=== PATIENT | female | born 1965 | race Caucasian/White ===

== ENCOUNTER 2016-12-06 14:11 | Emergency (ER) | payer BC ==
[~2016-12-06] VITALS: Ht 160 cm; Wt 92.5 kg
[~2016-12-06 14:11] MED LIST: AMOX875 PO
[2016-12-06 14:15] VITALS: BP 150/95; PULSE 105; RESP 16; TEMP 98.6; O2SAT 98
--- NOTE | 2016-12-06 15:03 | RADRPT ---
EXAM DATE/TIME: 12/06/2016 14:32 [facility] COMPARISON: No previous studies available for comparison. INDICATIONS : Short of breath and weakness MEDICAL HISTORY : Hypertension. SURGICAL HISTORY : None. ENCOUNTER: Initial ACUITY: 1 week PAIN SCORE: 3/10 LOCATION: Bilateral chest FINDINGS: PA and lateral views of the chest demonstrate the lungs to be symmetrically aerated without evidence of mass, infiltrate or effusion. The cardiomediastinal contours are unremarkable. Osseous structure s are intact. CONCLUSION: Normal examination. Power Forrest Jr., MD on December 06, 2016 at 15:01 Board Certified Radiologist. This report was verified electronically.
--- NOTE | 2016-12-06 15:10 | PD ---
HPI Chief Complaint: Cold / Flu Symptoms Time Seen by Provider: 14:25 Travel History International Travel<30 days: No Contact w/Intl Traveler<30days: No Traveled to known affect area: No History of Present Illness HPI 51-year-old female presents to the emergency department for evaluation of cough , body aches, sore throat nasal congestion 3 days. She denies fever or chills. Symptoms severity mild. No aggravating or alleviating factors. She denies chest pain or shortness of breath. PFSH Past Medical History Medical History: Denies Significant Hx Diminished Hearing: No Hypertension: Yes (ON NO MEDS) Immunizations Current: Yes Tetanus Vaccination: > 5 Years Influenza Vaccination: No ?: Not : 4 Para: 3 Past Surgical History Section: Yes (X3) Gynecologic Surgery: Yes (3 C-SECTIONS) Social History Alcohol Use: No Tobacco Use: No Substance Use: No Allergies-Medications (Allergen,Severity, Reaction): Coded Allergies: No Known Allergies (Verified , 12/06/16) Reported Meds & Prescriptions Reported Meds & Active Scripts Active No Active Prescriptions or Reported Medications Review of Systems Except as stated in HPI: all other systems reviewed are Neg Physical Exam Narrative GENERAL: Well-nourished, well-developed patient. SKIN: Focused skin assessment warm/dry. HEAD: Normocephalic. ENT: No scleral icterus. No injection or drainage. Nasal congestion. Pharyngeal erythema. No tonsillar swelling or exudate. NECK: Supple, trachea midline. No JVD or lymphadenopathy. CARDIOVASCULAR: Regular rate and rhythm without murmurs, gallops, or rubs. RESPIRATORY: Breath sounds equal bilaterally. No accessory muscle use. GASTROINTESTINAL: Abdomen soft, non-tender, nondistended. MUSCULOSKELETAL: No cyanosis, or edema. BACK: Nontender without obvious deformity. No CVA tenderness. Data Data Last Documented VS Vital Signs Date Time Temp Pulse Resp B/P (MAP) Pulse Ox O2 Delivery O2 Flow Rate FiO2 12/06/16 14:25 98 Room Air 12/06/16 14:15 98.6 105 16 150/95 (113) Orders Orders Chest, Pa & Lat (12/06/16 ) Influenzae A/B Antigen (12/06/16 14:32) MDM Medical Decision Making Medical Screen Exam Complete: Yes Emergency Medical Condition: Yes Differential Diagnosis Bronchitis, pneumonia, URI or influenza Narrative Course 51-year-old female presents emergency department for evaluation of cough, body aches, sore throat nasal congestion 3 days. Her physical exam is reassuring. Her breath sounds are clear. Chest x-ray is negative for consolidation. Influenza A and B negative. Patient will be treated for viral infection and advised on symptomatic treatment. Patient verbalizes understanding and agrees to plan Diagnosis Primary Impression: Viral respiratory illness Referrals: Primary Care Physician Additional Instructions: Take [id number] Motrin 600-800 mg every 6-8 hours as needed for pain. Stay well hydrated by drinking plenty fluids. Continue [id number] cough and cold medicine. Rest. Follow-up with her primary doctor for recheck. Scripts No Active Prescriptions or Reported Meds Disposition: 01 DISCHARGE HOME Condition: Stable Jodi Santiago Dec 06, 2016 15:10
== END 2016-12-06 15:22 | disposition home or self-care (01) ==
LOC: PHEFT 14:11
DX: J98.8 Other specified respiratory disorders (principal); B97.89 Other viral agents as the cause of diseases classified elsewhere; R05 Cough; M79.1 Myalgia; R07.0 Pain in throat; R09.81 Nasal congestion; I10 Essential (primary) hypertension
CPT/HCPCS: 71020; 87804; 99284